=== PATIENT | male | born 1990 | race African-American/Black ===

== ENCOUNTER 2023-11-14 11:15 | Emergency (ER) | payer SELFPAY ==
[~2023-11-14] VITALS: Ht 182.9 cm; Wt 81.6 kg
[2023-11-14 11:24] VITALS: BP_SYST 122; PULSE 65; RESP 20; TEMP 97; O2SAT 98
[2023-11-14 12:07] LABS: BILIRUBIN,URINE NEGATIVE (NEGATIVE); BLOOD, URINE NEGATIVE (NEGATIVE); CLARITY/URINE SL CLOUDY (CLEAR); COLOR,URINE YELLOW (YELLOW); GLUCOSE,URINE NEGATIVE (NEGATIVE); KETONES,URINE NEGATIVE (NEGATIVE); LEUKOCYTE ESTERASE ,URINE 3+ (NEGATIVE); NITRITE, URINE NEGATIVE (NEGATIVE); PROTEIN URINE NEGATIVE (NEGATIVE); UROBILINOGEN,URINE 0.2 (0.2-1.0)
[2023-11-14] MEDS: cefTRIAXone 500 MG in LIDOCAINE 1%, 20 ML MDV 1 ML IM ONE (12:22)
[2023-11-14 12:28] LABS: BACTERIA,URINE FEW /HPF (None Seen); RBC,URINE 0-3 /HPF (0-3); WBC,URINE 50-80 /HPF (0-3)
[2023-11-14 12:29] LABS: MUCUS,URINE 1+ /LPF (None Seen)
[2023-11-14] MEDS ORDERED: DOXY-244 PO (12:35)
[2023-11-14 12:46] VITALS: BP_SYST 122; PULSE 65; RESP 20; TEMP 97; O2SAT 98
[2023-11-15 09:48] LABS: NEISSERIA GONORRHOEAE PCR Detected (NOTdetected)
== END 2023-11-14 12:52 | disposition home or self-care (01) ==
LOC: EDBD 11:15 → SED 11:15
DX: N34.2 Other urethritis (principal); Z79.899 Other long term (current) drug therapy
CPT/HCPCS: 99283; 81001; 87086; 36415; 96372; 87491; J0696; 81000; 81015